=== PATIENT | female | born 1950 | race Caucasian/White ===

== ENCOUNTER 2024-09-07 20:24 | Inpatient (IN) | payer MEDICARE ==
[~2024-09-07] VITALS: Ht 157.5 cm; Wt 94.1 kg
[2024-09-07 20:41] LABS: BASOPHILS % 1.1 % (0.0-2.0); EOSINOPHILS % 2.2 % (0.0-5.0); HEMATOCRIT. 36.1 % (36.0-48.0); HEMOGLOBIN. 12.3 g/dL (12.0-16.0); LYMPHOCYTES % 36.6 % (20.0-50.0); MEAN CORPUSCULAR HEMOGLOBIN 31.4 pg (28.0-32.0); MEAN CORPUSCULAR HGB CONC 34.1 g/dL (31.0-37.0); MEAN CORPUSCULAR VOLUME 92.1 fL (81.0-99.0); MEAN PLATELET VOLUME 8.3 fl (7.4-10.4); MONOCYTES % 6.9 % (2.0-8.0); NEUTROPHILS % 53.2 % (40.0-76.0); PLATELET 300 x1000/uL (130-400); RED BLOOD CELL COUNT 3.92 mill/uL (4.2-5.4); RED CELL DISTRIBUTION WIDTH 12.5 % (11.6-14.6); WHITE BLOOD COUNT 13.5 x1000/uL (4.5-11.0)
[2024-09-07] MEDS ORDERED: DIPHENHYDRAMINE 50MG/ML VIAL ONE (20:48)
[2024-09-07] MEDS ORDERED: IODIXANOL 320 MG/ML 150ML BOTTLE IV ONE (20:48)
[2024-09-07] MEDS ORDERED: FENTANYL CITRATE/PF 50MCG/ML 2ML VIAL ONE (20:48)
[2024-09-07 20:49] LABS: CHLORIDE 95 mEq/L (98-107); POTASSIUM 4.2 mEq/L (3.5-5.1); SODIUM 128 mEq/L (136-145)
[2024-09-07] MEDS ORDERED: MIDAZOLAM HCL 2 MG/2 ML VIAL ONE (20:49)
[2024-09-07] MEDS ORDERED: LIDOCAINE HCL 1% 20ML VIAL ONE (20:49)
[2024-09-07] MEDS ORDERED: HEPARIN 1000 UNITS/ML 10ML ONE (20:49)
[2024-09-07] MEDS ORDERED: VERAPAMIL HCL 2.5 MG/1 ML 2ML VIAL IV ONE (20:49)
[2024-09-07 20:50] LABS: CALCIUM 8.8 mg/dL (8.7-10.4); CARBON DIOXIDE 27 mEq/L (21-32)
[2024-09-07] MEDS: HEPARIN 5000 UNITS/ML VIAL IV ONE (20:51)
[2024-09-07 20:55] LABS: CREATININE 1.1 mg/dL (0.6-1.0); GLUCOSE 170 mg/dL (70-105); UREA NITROGEN BLOOD 16 mg/dL (9-23)
[2024-09-07 20:57] LABS: ALANINE AMINOTRANSFERASE 14 IU/L (10-49); ALBUMIN 4.2 g/dL (3.2-4.8); ASPARTATE AMINOTRANSFERASE 18 IU/L (<34); BILIRUBIN DIRECT 0.2 mg/dL (<=3.0)
[2024-09-07 20:58] LABS: BILIRUBIN TOTAL 0.5 mg/dL (0.1-1.0); PROTEIN TOTAL 6.7 g/dL (6.0-8.3)
[2024-09-07 21:01] LABS: TROPONIN I HIGH SENSITIVITY 388 ng/L (3.0-34)
[2024-09-07] MEDS ORDERED: EPINEPHRINE 0.1MG/ML (1:10,000) 10ML SYR ONE (21:01)
[2024-09-07] MEDS ORDERED: ATROPINE SULFATE 1MG/10ML SYR ONE (21:01)
[2024-09-07] MEDS ORDERED: EPTIFIBATIDE 2 MG/ML 10ML VIAL IV ONE (21:28)
[2024-09-07] MEDS ORDERED: CLOPIDOGREL 75MG TABLET ONE (21:42)
[2024-09-07] MEDS ORDERED: TICAGRELOR 90 MG TABLET PO ONE (21:44)
[2024-09-07] MEDS ORDERED: ATROPINE SULFATE 1MG/10ML SYR IV PRN (22:00)
[2024-09-07] MEDS ORDERED: ENOXAPARIN 40MG/0.4ML SYR SUBCUT SCH (23:00)
[2024-09-07] MEDS ORDERED: ACETAMINOPHEN 325MG TABLET PO PRN (23:00)
[2024-09-07] MEDS ORDERED: DOCUSATE SODIUM 100MG CAPSULE PO PRN (23:00)
[2024-09-07] MEDS ORDERED: ZOLPIDEM TARTRATE 5MG TABLET PO PRN (23:00)
[2024-09-07] MEDS ORDERED: NA PHOS,M-B/NA PHOS,DI-BA ENEMA 118ML PR PRN (23:00)
[2024-09-07] MEDS ORDERED: MAGNESIUM/ALUMINUM HYDROXIDE/SIMETHICONE 30ML UDC PO PRN (23:00)
[2024-09-07 23:21] VITALS: BP 147/52; PULSE 58; RESP 27; O2SAT 97
[2024-09-07 23:30] VITALS: BP 143/62; PULSE 51; RESP 22; O2SAT 93
[2024-09-07] MEDS: PANTOPRAZOLE 40MG DR TABLET PO SCH (23:39)
[2024-09-07] MEDS: BLOOD SUGAR DIAGNOSTIC STRIP TEST SCH (23:43)
[2024-09-07] MEDS ORDERED: INSULIN LISPRO 100 UNITS/ML SUBCUT SCH (23:45)
[2024-09-07] MEDS ORDERED: DEXTROSE 50% WATER 50ML SYRINGE IV PRN (23:45)
[2024-09-08] VITALS (54 sets, daily range): BP systolic 88–175; BP diastolic 44–112; PULSE 50–82; RESP 14–24; TEMP 36.3–36.7; O2SAT 90–95
[2024-09-08 02:30] LABS: TROPONIN I HIGH SENSITIVITY 18394 ng/L (3.0-34)
[2024-09-08] MEDS ORDERED: METF-416 PO (04:48)
[2024-09-08] MEDS ORDERED: LISINOPRIL-HCTZ (04:48)
[2024-09-08] MEDS ORDERED: ROSU5CAP (04:48)
[2024-09-08] MEDS ORDERED: METO-396 PO (04:48)
[2024-09-08] MEDS: ENOXAPARIN 30MG/0.3ML SYR SUBCUT SCH (05:46)
[2024-09-08] MEDS: INSULIN LISPRO 100 UNITS/ML SUBCUT SCH (07:57)
[2024-09-08] MEDS: ACETAMINOPHEN 325MG TABLET PO PRN (08:15)
[2024-09-08] MEDS: LOSARTAN 50 MG TABLET PO SCH (08:46)
[2024-09-08] MEDS: ASPIRIN 81MG TABLET PO SCH (08:46)
[2024-09-08] MEDS: TICAGRELOR 90 MG TABLET PO SCH (08:47)
[2024-09-08 09:36] LABS: BASOPHILS % 0.2 % (0.0-2.0); EOSINOPHILS % 0.2 % (0.0-5.0); HEMATOCRIT. 36.6 % (36.0-48.0); HEMOGLOBIN. 12.5 g/dL (12.0-16.0); LYMPHOCYTES % 11.4 % (20.0-50.0); MEAN CORPUSCULAR HEMOGLOBIN 31.1 pg (28.0-32.0); MEAN CORPUSCULAR VOLUME 91.5 fL (81.0-99.0); MEAN PLATELET VOLUME 8.6 fl (7.4-10.4); MONOCYTES % 5.4 % (2.0-8.0); NEUTROPHILS % 82.8 % (40.0-76.0); PLATELET 260 x1000/uL (130-400); RED CELL DISTRIBUTION WIDTH 12.4 % (11.6-14.6); WHITE BLOOD COUNT 14.1 x1000/uL (4.5-11.0)
[2024-09-08 10:00] LABS: CARBON DIOXIDE 24 mEq/L (21-32); CHLORIDE 93 mEq/L (98-107); POTASSIUM 4.5 mEq/L (3.5-5.1); SODIUM 126 mEq/L (136-145)
[2024-09-08 10:01] LABS: CALCIUM 8.7 mg/dL (8.7-10.4)
[2024-09-08 10:05] LABS: CREATININE 0.9 mg/dL (0.6-1.0); GLUCOSE 111 mg/dL (70-105)
[2024-09-08 10:06] LABS: TRIGLYCERIDE 203 mg/dL (0-150); UREA NITROGEN BLOOD 15 mg/dL (9-23)
[2024-09-08 10:07] LABS: LDL CHOLESTEROL 30 mg/dL (5-100)
[2024-09-08 10:08] LABS: CHOLESTEROL 103 mg/dL (<200); HDL CHOLESTEROL 42 mg/dL (>65)
[2024-09-08 10:09] LABS: THYROID STIMULATING HORMONE 1.03 uIU/mL (0.55-4.78)
[2024-09-08 10:18] LABS: TROPONIN I HIGH SENSITIVITY 24758 ng/L (3.0-34)
[2024-09-08] MEDS: MORPHINE SULFATE 4 MG/ML INJ (FOR IV/IM USE) IV SCH (11:19)
[2024-09-08] MEDS: HYDRALAZINE 20MG/ML VIAL IV NR (11:26)
[2024-09-08] MEDS ORDERED: ZOLPIDEM TARTRATE 5MG TABLET PO PRN (15:00)
[2024-09-08 15:57] LABS: CLARITY URINE CLEAR (CLEAR); COLOR URINE YELLOW (YELLOW); GLUCOSE URINE NEGATIVE (NEGATIVE); KETONES URINE 2+ (NEGATIVE); LEUKOCYTE ESTERASE URINE NEGATIVE (NEGATIVE); NITRITE URINE NEGATIVE (NEGATIVE); OCCULT BLOOD URINE NEGATIVE (NEGATIVE); PH URINE 7.5 (4.5-8.0); PROTEIN URINE NEGATIVE (NEGATIVE); UROBILINOGEN URINE 0.2 E.U./dL (0.2-1.0)
[2024-09-08 16:51] LABS: TROPONIN I HIGH SENSITIVITY 21541 ng/L (3.0-34)
[2024-09-08] MEDS: ATORVASTATIN CALCIUM 40MG TABLET PO SCH (21:36)
[2024-09-09] VITALS: BP 149/70; PULSE 66; RESP 32; TEMP 36.6; O2SAT 93
[2024-09-09 08:00] VITALS: BP 139/55; PULSE 74; RESP 19; TEMP 36.6; O2SAT 95
[2024-09-09 12:00] VITALS: BP 122/60; PULSE 79; RESP 18; TEMP 36.6; O2SAT 96
[2024-09-09 15:07] VITALS: BP 122/60; PULSE 79; TEMP 97.9; O2SAT 96
[2024-09-09 16:00] VITALS: BP 120/67; PULSE 71; RESP 19; TEMP 36.9; O2SAT 96
== END 2024-09-09 16:33 | disposition home or self-care (01) | DRG 321 ==
LOC: ER 20:24 → CVICU 21:33 → EDBEDREQ 21:35 → 8WST 09-09 00:19
PROVIDERS: ADMIT Internal Medicine Pulmonary Disease; ATTEND Internal Medicine Pulmonary Disease
PROC: 0270346 Dilation of Coronary Artery, One Artery, Bifurcation, with Drug-eluting Intraluminal Device, Percutaneous Approach (ICD-10-PCS; principal; 2024-09-07)
PROC: 4A023N7 Measurement of Cardiac Sampling and Pressure, Left Heart, Percutaneous Approach (ICD-10-PCS; 2024-09-07)
PROC: B211YZZ Fluoroscopy of Multiple Coronary Arteries using Other Contrast (ICD-10-PCS; 2024-09-07)
PROC: B41FYZZ Fluoroscopy of Right Lower Extremity Arteries using Other Contrast (ICD-10-PCS; 2024-09-07)
PROC: B240ZZ3 Ultrasonography of Single Coronary Artery, Intravascular (ICD-10-PCS; 2024-09-07)
DX: I21.19 ST elevation (STEMI) myocardial infarction involving other coronary artery of inferior wall (principal); I50.21 Acute systolic (congestive) heart failure; E87.1 Hypo-osmolality and hyponatremia; I25.10 Atherosclerotic heart disease of native coronary artery without angina pectoris; E78.5 Hyperlipidemia, unspecified; E11.9 Type 2 diabetes mellitus without complications; D72.829 Elevated white blood cell count, unspecified; F17.210 Nicotine dependence, cigarettes, uncomplicated; I11.0 Hypertensive heart disease with heart failure; Z86.73 Personal history of transient ischemic attack (TIA), and cerebral infarction without residual deficits; Z79.899 Other long term (current) drug therapy
CPT/HCPCS: 36415; 71045; 80048; 80061; 80076; 81003; 82533; 82962; 83036; 83735; 84145; 84443; 84484; 85025; 85347; 86850; 86900; 92941; 92978; 93005; 93306; 93458; 99285; A4606; C1725; C1726; C1753; C1769; C1874; C1887; C1893; J0360; J0461; J1200; J1327; J1644; J1650; J1815; J2250; J2270; J3010; J3490; Q9967; J8499